=== PATIENT | male | born 1970 | race Caucasian/White ===

== ENCOUNTER 2017-08-02 17:37 | Emergency (ER) | payer SELFPAY ==
[~2017-08-02] VITALS: Ht 185.4 cm; Wt 100.0 kg
[2017-08-02 17:40] VITALS: BP 132/89
== END 2017-08-02 17:43 | disposition home or self-care (01) ==
LOC: ER 17:37
DX: J02.9 Acute pharyngitis, unspecified (principal); F17.200 Nicotine dependence, unspecified, uncomplicated; F12.10 Cannabis abuse, uncomplicated
CPT/HCPCS: 99281

== ENCOUNTER 2021-05-01 08:52 | Emergency (ER) | payer MEDICAID ==
[~2021-05-01] VITALS: Ht 188 cm; Wt 120.0 kg
[2021-05-01 09:01] VITALS: BP 170/97
[2021-05-01] MEDS ORDERED: PENI500T2 PO (09:07)
[2021-05-01] MEDS ORDERED: IBUP-1986 PO (09:07)
== END 2021-05-01 09:21 | disposition home or self-care (01) ==
LOC: ER 08:53
DX: K04.7 Periapical abscess without sinus (principal); F12.90 Cannabis use, unspecified, uncomplicated; Z72.89 Other problems related to lifestyle; Z79.2 Long term (current) use of antibiotics; Z79.899 Other long term (current) drug therapy
CPT/HCPCS: 99283